=== PATIENT | male | born 1975 | race Caucasian/White ===

== ENCOUNTER 2017-11-23 07:40 | Day surgery (SDC) | payer BC, OTHER ==
[~2017-11-23] VITALS: Ht 198.1 cm; Wt 142.9 kg
== END 2017-11-23 23:33 | disposition home or self-care (01) ==
LOC: ORSCMMR 07:40
PROVIDERS: Surgery
PROC: 0WUF0JZ Supplement Abdominal Wall with Synthetic Substitute, Open Approach (ICD-10-PCS; principal; 2017-11-23 09:00)
DX: K42.9 Umbilical hernia without obstruction or gangrene (principal); E66.01 Morbid (severe) obesity due to excess calories; Z68.36 Body mass index [BMI] 36.0-36.9, adult
CPT/HCPCS: C1781; J1100; J1885; J2250; J2405; J2710; J3010; J7120